=== PATIENT | male | born 2000 | race Two or more races ===

== ENCOUNTER → 2022-01-10 | Outpatient (CLI) | payer BC ==
[2022-01-10 13:00] LABS: BASO % 0.3 % (0.0-1.0); EOS % 0.6 % (0.0-3.0); HEMATOCRIT 44.2 % (42.0-52.0); HEMOGLOBIN 14.4 g/dl (13.5-17.5); LYMPH # 2.4 10^3/uL (1.5-5.0); LYMPH % 34.3 % (24.0-44.0); MEAN CORPUSCULAR HEMOGLOBIN 31.4 pg (27.0-33.0); MEAN CORPUSCULAR HGB CONC 32.6 g/dl (32.0-36.5); MEAN CORPUSCULAR VOLUME 96.3 fl (80.0-96.0); MONO # 0.5 10^3/uL (0.0-0.8); MONO % 7.6 % (2.0-8.0); NEUTROPHILS # 3.9 10^3/uL (1.5-8.5); NEUTROPHILS % 56.8 % (36.0-66.0); PLATELET COUNT, AUTOMATED 234 10^3/uL (150-450); RED BLOOD COUNT 4.59 10^6/uL (4.30-6.10); WHITE BLOOD COUNT 6.9 10^3/uL (4.0-10.0)
[2022-01-10 13:40] LABS: BLOOD UREA NITROGEN 15 MG/DL (9-23); CALCIUM LEVEL 10.2 MG/DL (8.5-10.1); CARBON DIOXIDE LEVEL 30 MMOL/L (20-31); CHLORIDE LEVEL 105 MMOL/L (98-107); CREATININE FOR GFR 1.11 MG/DL (0.70-1.30); GLUCOSE, FASTING 71 MG/DL (60-100); POTASSIUM SERUM 3.7 MMOL/L (3.5-5.1); SODIUM LEVEL 142 MMOL/L (136-145)
== END ==
LOC: M RAD 12:20
PROVIDERS: ATTEND Physician Assistant
DX: Z01.818 Encounter for other preprocedural examination (principal)

== ENCOUNTER → 2022-01-11 | Outpatient (CLI) | payer BC | LOC: M LABSMTC 11:40 | PROVIDERS: ATTEND Anesthesiology | DX: Z01.818 Encounter for other preprocedural examination (principal); Z11.52 Encounter for screening for COVID-19 ==

== ENCOUNTER 2022-01-14 10:20 | Day surgery (SDC) | payer BC ==
[~2022-01-14] VITALS: Ht 175.3 cm; Wt 90.3 kg
[~2022-01-14 10:20] MED LIST: ceFAZolin SOD 2 GM in IV 1 EA IV ONE
[2022-01-14] MEDS ORDERED: LR 1,000 ML IV SCH ×2 (10:45→13:55)
[2022-01-14] MEDS ORDERED: dexameTHASONE 4 MG/ML 1ML VIAL (J1100 PER 1MG) As Ordered ONE (11:38)
[2022-01-14] MEDS ORDERED: ONDANSETRON 4MG 2ML VIAL As Ordered ONE (11:38)
[2022-01-14] MEDS ORDERED: propofoL 200 MG/20 ML VIAL As Ordered ONE (11:38)
[2022-01-14] MEDS ORDERED: KETOROLAC 60MG 2ML VIAL As Ordered ONE (11:38)
[2022-01-14] MEDS ORDERED: MIDAZOLAM INJ 2MG/2ML VIAL (J2250 PER 1MG) As Ordered ONE (11:39)
[2022-01-14] MEDS ORDERED: fentaNYL 100 MCG/2 ML INJECTION As Ordered ONE (11:39)
[2022-01-14] MEDS ORDERED: LIDOCAINE 2% 100MG/5ML SDV (FOR ANES.) As Ordered ONE (11:43)
[2022-01-14] MEDS ORDERED: BUPIVACAINE HCL 0.25% 30ML VIAL As Ordered ONE (13:02)
[2022-01-14] MEDS ORDERED: LIDOCAINE 1% SDV 30ML VIAL As Ordered ONE (13:02)
[2022-01-14] MEDS ORDERED: oxyCODONE 5MG TAB PO PRN (13:55)
[2022-01-14] MEDS ORDERED: ONDANSETRON 4MG 2ML VIAL IV PRN (13:55)
[2022-01-14] MEDS ORDERED: HYDROMORPHONE HCL 0.5 MG/ 0.5 ML SYRINGE (J1170 PER 1) IV PRN (13:55)
[2022-01-14] MEDS ORDERED: CEPH500C PO (13:55)
[2022-01-14] MEDS ORDERED: HYDR-3713 PO (13:55)
[2022-01-14] MEDS ORDERED: fentaNYL 100 MCG/2 ML INJECTION IV PRN (13:55)
[2022-01-14] MEDS ORDERED: LIDOCAINE 2% 5ML JELLY UROJET As Ordered ONE (14:25)
[2022-01-14 14:48] VITALS: BP 123/59
== END 2022-01-14 15:10 | disposition home or self-care (01) ==
LOC: M SDC 10:20 → EDUNIT# 11:30 → M SDC 15:10
PROVIDERS: ATTEND Urology
DX: N53.12 Painful ejaculation (principal); F12.10 Cannabis abuse, uncomplicated
CPT/HCPCS: 54161; 88304; J0690; J1100; J1885; J2250; J2405; J3010

== ENCOUNTER 2022-04-08 13:51 | Emergency (ER) | payer BC ==
[~2022-04-08] VITALS: Ht 172.7 cm; Wt 92.6 kg
[~2022-04-08 13:51] MED LIST changes: +CEPH500C PO; +HYDR-3713 PO; -ceFAZolin SOD 2 GM in IV 1 EA IV ONE
[2022-04-08 13:52] VITALS: BP 135/63
[2022-04-08 16:49] LABS: BASO % 0.7 % (0.0-1.0); EOS % 0.7 % (0.0-3.0); HEMATOCRIT 46.8 % (42.0-52.0); HEMOGLOBIN 15.5 g/dl (13.5-17.5); LYMPH # 2.6 10^3/uL (1.5-5.0); LYMPH % 48.4 % (24.0-44.0); MEAN CORPUSCULAR HEMOGLOBIN 31.4 pg (27.0-33.0); MEAN CORPUSCULAR HGB CONC 33.1 g/dl (32.0-36.5); MEAN CORPUSCULAR VOLUME 94.7 fl (80.0-96.0); MONO # 0.4 10^3/uL (0.0-0.8); NEUTROPHILS # 2.3 10^3/uL (1.5-8.5); NEUTROPHILS % 42.8 % (36.0-66.0); PLATELET COUNT, AUTOMATED 264 10^3/uL (150-450); RED BLOOD COUNT 4.94 10^6/uL (4.30-6.10); WHITE BLOOD COUNT 5.5 10^3/uL (4.0-10.0)
[2022-04-08 17:08] LABS: LIPASE 27 U/L (12-53)
[2022-04-08 17:17] LABS: ALBUMIN 4.3 G/DL (3.2-5.2); ALKALINE PHOSPHATASE 86 U/L (46-116); ALT/SGPT 30 U/L (7.0-40); AST/SGOT 31 U/L (<34); BILIRUBIN,TOTAL 0.6 MG/DL (0.3-1.2); BLOOD UREA NITROGEN 11 MG/DL (9-23); CALCIUM LEVEL 10.1 MG/DL (8.5-10.1); CARBON DIOXIDE LEVEL 27 MMOL/L (20-31); CHLORIDE LEVEL 104 MMOL/L (98-107); CREATININE FOR GFR 0.99 MG/DL (0.70-1.30); GLUCOSE, FASTING 78 MG/DL (60-100); MAGNESIUM LEVEL 1.8 MG/DL (1.8-2.4); POTASSIUM SERUM 4.2 MMOL/L (3.5-5.1); SODIUM LEVEL 137 MMOL/L (136-145)
== END 2022-04-08 17:43 | disposition home or self-care (01) ==
LOC: M ED 13:51
DX: S20.35 Superficial foreign body of front wall of thorax (principal); X58.XXXD Exposure to other specified factors, subsequent encounter; R07.9 Chest pain, unspecified; R10.10 Upper abdominal pain, unspecified; G89.29 Other chronic pain; R11.0 Nausea

== ENCOUNTER 2022-09-16 11:16 | Inpatient (IN) | payer BC, MEDICAID, SELFPAY ==
[~2022-09-16] VITALS: Ht 175.3 cm; Wt 89.4 kg
[2022-09-16 12:34] LABS: BASO % 0.1 % (0.0-1.0); EOS % 0.1 % (0.0-3.0); HEMATOCRIT 44.9 % (42.0-52.0); HEMOGLOBIN 14.5 g/dl (13.5-17.5); LYMPH # 0.7 10^3/uL (1.5-5.0); LYMPH % 9.7 % (24.0-44.0); MEAN CORPUSCULAR HEMOGLOBIN 31.5 pg (27.0-33.0); MEAN CORPUSCULAR HGB CONC 32.3 g/dl (32.0-36.5); MEAN CORPUSCULAR VOLUME 97.4 fl (80.0-96.0); MONO # 0.5 10^3/uL (0.0-0.8); MONO % 6.7 % (2.0-8.0); PLATELET COUNT, AUTOMATED 249 10^3/uL (150-450); RED BLOOD COUNT 4.61 10^6/uL (4.30-6.10); WHITE BLOOD COUNT 7.2 10^3/uL (4.0-10.0)
[2022-09-16] MEDS ORDERED: ONDANSETRON 4MG TAB PO ONE (12:35)
[2022-09-16 12:51] LABS: LIPASE 31 U/L (12-53)
[2022-09-16 12:54] LABS: ALBUMIN 4.1 G/DL (3.2-5.2); ALKALINE PHOSPHATASE 83 U/L (46-116); ALT/SGPT 16 U/L (7.0-40); AST/SGOT 21 U/L (<34); BILIRUBIN,DIRECT 0.2 MG/DL (<0.4); BILIRUBIN,TOTAL 0.5 MG/DL (0.3-1.2); BLOOD UREA NITROGEN 11 MG/DL (9-23); CALCIUM LEVEL 9.5 MG/DL (8.5-10.1); CARBON DIOXIDE LEVEL 25 MMOL/L (20-31); CHLORIDE LEVEL 107 MMOL/L (98-107); CREATININE FOR GFR 1.09 MG/DL (0.70-1.30); GLOMERULAR FILTRATION RATE > 60.0 (>60); GLUCOSE, FASTING 85 MG/DL (60-100); POTASSIUM SERUM 4.5 MMOL/L (3.5-5.1); SODIUM LEVEL 141 MMOL/L (136-145); TOTAL PROTEIN 7.6 G/DL (5.7-8.2)
[2022-09-16] MEDS ORDERED: ONDANSETRON 4MG 2ML VIAL IV ONE (13:15)
[2022-09-16] MEDS ORDERED: ACETAMINOPHEN 1000MG 100ML IV BAG IV ONE (13:15)
[2022-09-16] MEDS ORDERED: NS 1,000 ML IV ONE ×3 (13:15→18:00)
[2022-09-16] MEDS ORDERED: ISOVUE-370 76% 100ML VIAL As Ordered ONE (13:19)
[2022-09-16] MEDS ORDERED: levETIRAcetam INJection 1,000 MG in D5W 100 ML IV ONE (13:45)
[2022-09-16] MEDS ORDERED: LORazepam 2 MG/ML 1ML VIAL IV PRN (13:55)
[2022-09-16] MEDS ORDERED: LORazepam 2 MG/ML 1ML VIAL As Ordered ONE (13:55)
[2022-09-16] MEDS ORDERED: LORazepam 2 MG/ML 1ML VIAL IM STA (13:56)
[2022-09-16 15:19] LABS: ACETAMINOPHEN LEVEL < 2.0 UG/ML (10.0-20.0); MAGNESIUM LEVEL 1.8 MG/DL (1.8-2.4); PHOSPHORUS LEVEL 2.1 MG/DL (2.5-4.9); SALICYLATE LEVEL < 3.0 MG/DL (<30)
[2022-09-16] MEDS ORDERED: VALPROATE SOD INJ 500 MG in D5W 50 ML IV ONE ×2 (15:30→19:15)
[2022-09-16 15:46] LABS: INR 1.13; PROTHROMBIN TIME 14.7 SECONDS (12.5-14.5)
[2022-09-16 16:02] LABS: ETHYL ALCOHOL (ETHANOL) < 0.003 % (0.000-0.010); VALPROIC ACID (DEPAKOTE) < 3.0 UG/ML (50.0-100.0)
[2022-09-16 18:09] LABS: AMPHETAMINES LEVEL URINE NEGATIVE (NEGATIVE); BARBITURATES URINE NEGATIVE (NEGATIVE); COCAINE METABOLITE URINE NEGATIVE (NEGATIVE); METHADONE URINE NEGATIVE (NEGATIVE); OPIATES URINE NEGATIVE (NEGATIVE); PHENCYCLIDINE URINE NEGATIVE (NEGATIVE)
[2022-09-16 18:10] LABS: BENZODIAZEPINES URINE NEGATIVE (NEGATIVE)
[2022-09-16 18:11] LABS: CANNABINOIDS URINE POSITIVE (NEGATIVE)
[2022-09-16] MEDS ORDERED: PANTOPRAZOLE 40MG VIAL IV ONE (18:50)
[2022-09-16] MEDS ORDERED: methylPREDNISolone 125MG 2ML VIAL IV ONE (19:15)
[2022-09-16] MEDS ORDERED: MED REC IN PROGRESS XX SCH (19:30)
[2022-09-16] MEDS ORDERED: HOME MED LIST COMPLETE! XX SCH (19:40)
[2022-09-16] MEDS ORDERED: ACETAMINOPHEN TAB 650MG DOSE (2X325MG) PO ONE (19:40)
[2022-09-16] MEDS ORDERED: ACETAMINOPHEN TAB 650MG DOSE (2X325MG) PO PRN (20:25)
[2022-09-16 20:31] LABS: ERYTHROCYTE SEDIMENTATION RATE 13 mm/hr (0-15)
[2022-09-16] MEDS ORDERED: methylPREDNISolone 1,000 MG, VIAL MATE ADAPTER 1 EACH in NS 250 ML IV ONE (20:55)
[2022-09-16] MEDS ORDERED: PANTOPRAZOLE 40MG VIAL IV SCH (21:00)
[2022-09-16] MEDS ORDERED: ONDANSETRON 4MG 2ML VIAL IV PRN (21:05)
[2022-09-16 21:34] LABS: HIV 1&2 SCREEN NEGATIVE (NEGATIVE)
[2022-09-16 22:42] VITALS: BP 131/63; TEMP 99.2; O2SAT 92
[2022-09-16 23:27] VITALS: O2SAT 90
[2022-09-16 23:45] VITALS: O2SAT 90
[2022-09-17] VITALS (9 sets, daily range): BP systolic 102–111; BP diastolic 53–61; TEMP 98.9–99.4; O2SAT 90–100
[2022-09-17 04:53] LABS: BASO % 0.1 % (0.0-1.0); HEMOGLOBIN 13.5 g/dl (13.5-17.5); LYMPH # 1.1 10^3/uL (1.5-5.0); LYMPH % 9.5 % (24.0-44.0); MEAN CORPUSCULAR HEMOGLOBIN 31.5 pg (27.0-33.0); MEAN CORPUSCULAR HGB CONC 32.9 g/dl (32.0-36.5); MEAN CORPUSCULAR VOLUME 95.6 fl (80.0-96.0); MONO % 0.3 % (2.0-8.0); NEUTROPHILS # 10.5 10^3/uL (1.5-8.5); NEUTROPHILS % 89.6 % (36.0-66.0); PLATELET COUNT, AUTOMATED 236 10^3/uL (150-450); RED BLOOD COUNT 4.29 10^6/uL (4.30-6.10); WHITE BLOOD COUNT 11.7 10^3/uL (4.0-10.0)
[2022-09-17 05:13] LABS: BLOOD UREA NITROGEN 8 MG/DL (9-23); CARBON DIOXIDE LEVEL 21 MMOL/L (20-31); CHLORIDE LEVEL 108 MMOL/L (98-107); CREATININE FOR GFR 0.99 MG/DL (0.70-1.30); GLOMERULAR FILTRATION RATE > 60.0 (>60); GLUCOSE, FASTING 123 MG/DL (60-100); SODIUM LEVEL 140 MMOL/L (136-145)
[2022-09-17] MEDS ORDERED: VALPROATE SOD INJ 500 MG in D5W 50 ML IV SCH (09:00)
[2022-09-17] MEDS ORDERED: methylPREDNISolone 1,000 MG, VIAL MATE ADAPTER 1 EACH in NS 250 ML IV SCH (22:00)
[2022-09-18] MEDS ORDERED: DEPA500T2 PO (13:23)
[2022-09-18] MEDS ORDERED: PROT1TAB2 PO (20:37)
[2022-09-18] MEDS ORDERED: DEPA1TAB3 PO (20:37)
[2022-09-21 18:08] LABS: ANCA-ATYPICAL <1:20 titer (Neg:<1:20); CYCLIC CITRULLINATED PEPTIDE 4 units (0-19); CYTOPLASMIC NEUTROP AB ANCA-C <1:20 titer (Neg:<1:20); PERINUCLEAR AB ANCA-P <1:20 titer (Neg:<1:20)
== END 2022-09-17 06:30 | disposition left against medical advice (07) | DRG 144 ==
LOC: M ED 11:16 → M ED INP 20:21 → M PCU 22:39
PROVIDERS: ADMIT Internal Medicine Nephrology; ATTEND Internal Medicine Nephrology
DX: R04.89 Hemorrhage from other sites in respiratory passages (principal); J96.01 Acute respiratory failure with hypoxia; G93.41 Metabolic encephalopathy; G40.409 Other generalized epilepsy and epileptic syndromes, not intractable, without status epilepticus; F20.9 Schizophrenia, unspecified; F11.10 Opioid abuse, uncomplicated; R04.2 Hemoptysis; J45.909 Unspecified asthma, uncomplicated; F14.10 Cocaine abuse, uncomplicated; F12.10 Cannabis abuse, uncomplicated; F90.9 Attention-deficit hyperactivity disorder, unspecified type; F31.9 Bipolar disorder, unspecified; Z91.148 Patient's other noncompliance with medication regimen for other reason

== ENCOUNTER 2022-09-17 18:52 | Emergency (ER) | payer BC, SELFPAY ==
[~2022-09-17] VITALS: Ht 172.7 cm; Wt 86.2 kg
[2022-09-17 18:55] VITALS: BP 124/66; TEMP 99.1; O2SAT 99
[2022-09-18] MEDS ORDERED: DEPA500T2 PO (13:23)
[2022-09-18] MEDS ORDERED: DEPA1TAB3 PO (20:37)
[2022-09-18] MEDS ORDERED: PROT1TAB2 PO (20:37)
== END 2022-09-17 20:03 | disposition left against medical advice (07) ==
LOC: M ED 18:52
DX: R04.2 Hemoptysis (principal); R56.9 Unspecified convulsions; Z79.899 Other long term (current) drug therapy

== ENCOUNTER 2022-09-18 13:11 | Emergency (ER) | payer BC ==
[~2022-09-18] VITALS: Ht 175.3 cm; Wt 83.0 kg
[2022-09-18] MEDS ORDERED: DEPA500T2 PO (13:23)
[2022-09-18 16:50] LABS: BASO % 0.1 % (0.0-1.0); HEMATOCRIT 36.6 % (42.0-52.0); HEMOGLOBIN 12.3 g/dl (13.5-17.5); LYMPH # 3.8 10^3/uL (1.5-5.0); LYMPH % 22.5 % (24.0-44.0); MEAN CORPUSCULAR HEMOGLOBIN 31.9 pg (27.0-33.0); MEAN CORPUSCULAR HGB CONC 33.6 g/dl (32.0-36.5); MEAN CORPUSCULAR VOLUME 94.8 fl (80.0-96.0); MONO % 5.6 % (2.0-8.0); NEUTROPHILS % 71.3 % (36.0-66.0); PLATELET COUNT, AUTOMATED 214 10^3/uL (150-450); RED BLOOD COUNT 3.86 10^6/uL (4.30-6.10); WHITE BLOOD COUNT 16.8 10^3/uL (4.0-10.0)
[2022-09-18] MEDS ORDERED: PANTOPRAZOLE 40MG VIAL IV ONE (16:50)
[2022-09-18] MEDS ORDERED: methylPREDNISolone 1,000 MG, VIAL MATE ADAPTER 1 EACH in NS 250 ML IV ONE (16:50)
[2022-09-18] MEDS ORDERED: VALPROATE SOD INJ 500 MG in D5W 50 ML IV ONE (16:55)
[2022-09-18 16:56] LABS: ERYTHROCYTE SEDIMENTATION RATE 5 mm/hr (0-15)
[2022-09-18 17:06] LABS: INR 1.06; PARTIAL THROMBOPLASTIN TIME 22.9 SECONDS (24.8-34.2)
[2022-09-18 17:23] LABS: LIPASE 30 U/L (12-53)
[2022-09-18 17:29] LABS: ALBUMIN 3.9 G/DL (3.2-5.2); ALKALINE PHOSPHATASE 68 U/L (46-116); ALT/SGPT 17 U/L (7.0-40); AST/SGOT 23 U/L (<34); BILIRUBIN,TOTAL 0.8 MG/DL (0.3-1.2); BLOOD UREA NITROGEN 14 MG/DL (9-23); CALCIUM LEVEL 9.2 MG/DL (8.5-10.1); CARBON DIOXIDE LEVEL 24 MMOL/L (20-31); CHLORIDE LEVEL 109 MMOL/L (98-107); CREATININE FOR GFR 0.93 MG/DL (0.70-1.30); GLOMERULAR FILTRATION RATE > 60.0 (>60); GLUCOSE, FASTING 89 MG/DL (60-100); POTASSIUM SERUM 3.7 MMOL/L (3.5-5.1); SODIUM LEVEL 142 MMOL/L (136-145)
[2022-09-18] MEDS ORDERED: MED REC IN PROGRESS XX SCH (18:45)
[2022-09-18] MEDS ORDERED: HOME MED LIST COMPLETE! XX SCH (20:05)
[2022-09-18] MEDS ORDERED: PROT1TAB2 PO (20:37)
[2022-09-18] MEDS ORDERED: DEPA1TAB3 PO (20:37)
[2022-09-18 21:06] VITALS: BP 141/77; TEMP 98.3; O2SAT 100
== END 2022-09-18 21:10 | disposition home or self-care (01) ==
LOC: M ED 13:11
DX: J98.4 Other disorders of lung (principal); R04.2 Hemoptysis; R56.9 Unspecified convulsions; F41.9 Anxiety disorder, unspecified; F31.9 Bipolar disorder, unspecified; F20.9 Schizophrenia, unspecified; F19.11 Other psychoactive substance abuse, in remission; F12.90 Cannabis use, unspecified, uncomplicated; Z76.0 Encounter for issue of repeat prescription; Z79.899 Other long term (current) drug therapy
CPT/HCPCS: 71046; 80053; 83605; 83690; 85025; 85610; 85652; 85730; 86140; 86850; 86900; 86901; 87635; 96374; 96375; 99284; C9113; J2930

== ENCOUNTER → 2022-10-05 | Outpatient (REF) | payer BC ==
[~2022-10-05] MED LIST changes: +DEPA1TAB3 PO; +DEPA500T2 PO; +PROT1TAB2 PO
[2022-10-05 17:20] LABS: BASO % 0.6 % (0.0-1.0); EOS % 0.6 % (0.0-3.0); HEMATOCRIT 42.1 % (42.0-52.0); HEMOGLOBIN 13.1 g/dl (13.5-17.5); LYMPH # 2.2 10^3/uL (1.5-5.0); LYMPH % 41.8 % (24.0-44.0); MEAN CORPUSCULAR HEMOGLOBIN 31.4 pg (27.0-33.0); MEAN CORPUSCULAR HGB CONC 31.1 g/dl (32.0-36.5); MONO # 0.7 10^3/uL (0.0-0.8); MONO % 12.6 % (2.0-8.0); NEUTROPHILS # 2.3 10^3/uL (1.5-8.5); NEUTROPHILS % 43.3 % (36.0-66.0); PLATELET COUNT, AUTOMATED 204 10^3/uL (150-450); RED BLOOD COUNT 4.17 10^6/uL (4.30-6.10); WHITE BLOOD COUNT 5.2 10^3/uL (4.0-10.0)
[2022-10-05 17:23] LABS: THYROID STIMULATING HORMONE 1.749 uIU/ML (0.55-4.78)
[2022-10-05 17:25] LABS: VITAMIN B12 LEVEL 531 PG/ML (211-911)
[2022-10-05 18:30] LABS: ALBUMIN 3.8 G/DL (3.2-5.2); ALKALINE PHOSPHATASE 67 U/L (46-116); ALT/SGPT 47 U/L (7.0-40); AST/SGOT 25 U/L (<34); BILIRUBIN,TOTAL 0.3 MG/DL (0.3-1.2); BLOOD UREA NITROGEN 10 MG/DL (9-23); CALCIUM LEVEL 9.8 MG/DL (8.5-10.1); CARBON DIOXIDE LEVEL 27 MMOL/L (20-31); CHLORIDE LEVEL 106 MMOL/L (98-107); CHOLESTEROL LEVEL 139 MG/DL (<200); CHOLESTEROL RISK RATIO 2.53 (<5); CREATININE FOR GFR 0.96 MG/DL (0.70-1.30); GLOMERULAR FILTRATION RATE > 60.0 (>60); GLUCOSE, FASTING 79 MG/DL (60-100); HDL CHOLESTEROL 54.8 MG/DL (>40); NON-HDL-C 84.2 MG/DL; POTASSIUM SERUM 4.5 MMOL/L (3.5-5.1); SODIUM LEVEL 141 MMOL/L (136-145); TOTAL PROTEIN 7.1 G/DL (5.7-8.2); TRIGLYCERIDES LEVEL 101 MG/DL (<150)
[2022-10-05 18:36] LABS: FOLATE 10.5 NG/ML (>5.4)
== END ==
LOC: M LAB REF 16:16
PROVIDERS: ATTEND Nurse Practitioner Family
DX: R07.9 Chest pain, unspecified (principal); Z11.9 Encounter for screening for infectious and parasitic diseases, unspecified; R56.9 Unspecified convulsions; E66.3 Overweight

== ENCOUNTER → 2022-10-09 | Outpatient (REF) | payer BC ==
[2022-10-09 16:49] LABS: APPEARANCE, URINE CLEAR (CLEAR); BACTERIA, URINE AUTO NEGATIVE (NEGATIVE); BILIRUBIN, URINE AUTO NEGATIVE (NEGATIVE); BLOOD, URINE BLOOD NEGATIVE (NEGATIVE); COLOR, URINE YELLOW (YELLOW); GLUCOSE, URINE (UA) AUTO NEGATIVE (NEGATIVE); KETONE, URINE AUTO NEGATIVE (NEGATIVE); LEUKOCYTE ESTERASE, URINE AUTO NEGATIVE (NEGATIVE); MUCUS, URINE SMALL (NEGATIVE); NITRITE, URINE AUTO NEGATIVE (NEGATIVE); PROTEIN, URINE AUTO NEGATIVE (NEGATIVE); RBC, URINE AUTO 1 /HPF (0-3); SPECIFIC GRAVITY URINE AUTO 1.025 (1.002-1.035); SQUAMOUS EPITHELIAL CELL UR AU 0 /HPF (0-6); WBC, URINE AUTO 0 /HPF (0-3)
== END ==
LOC: M LAB REF 16:15
PROVIDERS: ATTEND Nurse Practitioner Family
DX: R04.2 Hemoptysis (principal)

== ENCOUNTER 2022-11-13 08:02 | Emergency (ER) | payer BC, SELFPAY ==
[~2022-11-13] VITALS: Ht 177.8 cm; Wt 96.6 kg
[2022-11-13] MEDS ORDERED: NS 1,000 ML IV ONE (08:15)
[2022-11-13 08:27] LABS: VENOUS BASE EXCESS -10.8 (-2.0-2.0); VENOUS HCO3 18.5 MMOL/L (23.0-27.0); VENOUS O2 SATURATION 75.7 % (60.0-80.0); VENOUS PARTIAL PRESSURE CO2 54.2 mmHg (38.0-50.0); VENOUS PARTIAL PRESSURE O2 49.4 mmHg (30.0-50.0); VENOUS PH 7.151 UNITS (7.330-7.430); VENOUS STANDARD HCO3 15.7 MMOL/L; VENOUS TOTAL CO2 20.2 MMOL/L (24.0-28.0)
[2022-11-13] MEDS ORDERED: VALPROATE SOD INJ 1,000 MG in D5W 50 ML IV ONE (08:30)
[2022-11-13 08:33] LABS: BASO % 0.4 % (0.0-1.0); EOS % 0.4 % (0.0-3.0); HEMATOCRIT 46.2 % (42.0-52.0); HEMOGLOBIN 14.6 g/dl (13.5-17.5); LYMPH # 2.9 10^3/uL (1.5-5.0); LYMPH % 37.1 % (24.0-44.0); MEAN CORPUSCULAR HEMOGLOBIN 31.3 pg (27.0-33.0); MEAN CORPUSCULAR HGB CONC 31.6 g/dl (32.0-36.5); MEAN CORPUSCULAR VOLUME 98.9 fl (80.0-96.0); MONO # 0.5 10^3/uL (0.0-0.8); MONO % 6.4 % (2.0-8.0); NEUTROPHILS # 4.2 10^3/uL (1.5-8.5); NEUTROPHILS % 53.9 % (36.0-66.0); PLATELET COUNT, AUTOMATED 206 10^3/uL (150-450); RED BLOOD COUNT 4.67 10^6/uL (4.30-6.10); WHITE BLOOD COUNT 7.7 10^3/uL (4.0-10.0)
[2022-11-13] MEDS ORDERED: ACETAMINOPHEN TAB 650MG DOSE (2X325MG) PO ONE (08:40)
[2022-11-13 08:59] VITALS: TEMP 98.5
[2022-11-13] MEDS ORDERED: ONDANSETRON 4MG 2ML VIAL IV ONE (09:05)
[2022-11-13 09:13] LABS: ETHYL ALCOHOL (ETHANOL) < 0.003 % (0.000-0.010); VALPROIC ACID (DEPAKOTE) < 3.0 UG/ML (50.0-100.0)
[2022-11-13] MEDS ORDERED: ACETAMINOPHEN *IV* 1,000 MG in IV 1 EA IV ONE (09:15)
[2022-11-13 09:17] LABS: ALBUMIN 3.9 G/DL (3.2-5.2); ALKALINE PHOSPHATASE 67 U/L (46-116); ALT/SGPT 44 U/L (7.0-40); AST/SGOT 34 U/L (<34); BILIRUBIN,DIRECT < 0.1 MG/DL (<0.4); BILIRUBIN,TOTAL 0.2 MG/DL (0.3-1.2); BLOOD UREA NITROGEN 16 MG/DL (9-23); CALCIUM LEVEL 9.5 MG/DL (8.5-10.1); CARBON DIOXIDE LEVEL 21 MMOL/L (20-31); CHLORIDE LEVEL 106 MMOL/L (98-107); GLOMERULAR FILTRATION RATE > 60.0 (>60); GLUCOSE, FASTING 136 MG/DL (60-100); PHOSPHORUS LEVEL 4.9 MG/DL (2.5-4.9); POTASSIUM SERUM 4.5 MMOL/L (3.5-5.1); SODIUM LEVEL 141 MMOL/L (136-145); TOTAL PROTEIN 7.3 G/DL (5.7-8.2)
[2022-11-13 09:50] LABS: AMPHETAMINES LEVEL URINE NEGATIVE (NEGATIVE); METHADONE URINE NEGATIVE (NEGATIVE); OPIATES URINE NEGATIVE (NEGATIVE); PHENCYCLIDINE URINE NEGATIVE (NEGATIVE)
[2022-11-13 09:51] LABS: BARBITURATES URINE NEGATIVE (NEGATIVE); BENZODIAZEPINES URINE NEGATIVE (NEGATIVE); COCAINE METABOLITE URINE NEGATIVE (NEGATIVE)
[2022-11-13 10:04] LABS: CANNABINOIDS URINE POSITIVE (NEGATIVE)
[2022-11-13] MEDS ORDERED: LORazepam 2 MG/ML 1ML VIAL As Ordered ONE (12:23)
[2022-11-13] MEDS ORDERED: LORazepam 2 MG/ML 1ML VIAL IV STA (12:39)
[2022-11-13] MEDS ORDERED: MED REC IN PROGRESS XX SCH (13:00)
[2022-11-13] MEDS ORDERED: VITA200032 PO (13:04)
[2022-11-13] MEDS ORDERED: OMEP-173 PO (13:04)
[2022-11-13] MEDS ORDERED: VITA400C80 PO (13:14)
[2022-11-13] MEDS ORDERED: RA T500C2 PO (13:14)
[2022-11-13] MEDS ORDERED: HOME MED LIST COMPLETE! XX SCH (13:25)
[2022-11-13] MEDS ORDERED: DEPA500T2 PO (13:38)
[2022-11-13 14:00] VITALS: BP 119/75; O2SAT 98
== END 2022-11-13 14:16 | disposition left against medical advice (07) ==
LOC: M ED 08:02 → M ED INP 13:10 → UNDOADMOB 13:10 → ENRESERV 14:00 → UNDODISOB 14:45
DX: R56.9 Unspecified convulsions (principal); T42.76XA Underdosing of unspecified antiepileptic and sedative-hypnotic drugs, initial encounter; Z91.128 Patient's intentional underdosing of medication regimen for other reason; F90.9 Attention-deficit hyperactivity disorder, unspecified type; J45.909 Unspecified asthma, uncomplicated; F20.9 Schizophrenia, unspecified; F19.10 Other psychoactive substance abuse, uncomplicated; F17.200 Nicotine dependence, unspecified, uncomplicated; Z82.0 Family history of epilepsy and other diseases of the nervous system
CPT/HCPCS: 36415; 70450; 71045; 80047; 80048; 80076; 80164; 80307; 82077; 82140; 82330; 82803; 83605; 83735; 84100; 85025; 85730; 87486; 87581; 87633; 87798; 93041; 94760; 96365; 96368; 96375; 99285; J0131; J2060; J2405